=== PATIENT | female | born 1945 | race Hispanic/Latino ===

== ENCOUNTER 2018-06-09 07:03 | Day surgery (SDC) | payer MEDICARE ==
[~2018-06-09 07:03] MED LIST: ANCEF/STERILE WATER 2 GM/20 ML IV NR
[2018-06-09] MEDS ORDERED: NACL 0.9% 1000 ML 1,000 ML ONE (07:39)
--- NOTE | 2018-06-09 08:30 | Anesthesia Day of Surgery ---
Anesthesia Day of Surgery - Day of Surgery Patient Examined: Yes Patient H&P Reviewed: Yes Patient is NPO: Yes
--- NOTE | 2018-06-09 08:31 | Anesthesia Consultation ---
Anesthesia Consult and Med Hx Date of service: 06/09/18 - Airway Anesthetic Teeth Evaluation: Poor ROM Head & Neck: Adequate Mental/Hyoid Distance: Adequate Mallampati Class: Class I Intubation Access Assessment: Good - Pulmonary Exam CTA: Yes - Cardiac Exam Cardiac Exam: RRR - Pre-Operative Health Status ASA Pre-Surgery Classification: ASA3 Proposed Anesthetic Plan: General (GA with LMA ok, denies HTN, Denies DM, Age > 70 ASA 3) - Pulmonary Hx Smoking: No Hx Sleep Apnea: No (MONALISA PRE SCREEN LOW RISK.) - Cardiovascular System Hx Hypertension: No - Hematic Hx Anemia: Yes (NOT RECENT) - Other Systems Hx Cancer: No
[2018-06-09] MEDS ORDERED: XYLOCAINE MPF 2% ONE (09:16)
[2018-06-09] MEDS ORDERED: SUBLIMAZE ONE (09:16)
[2018-06-09] MEDS ORDERED: DIPRIVAN 10 MG/ML IV ONE (09:16)
[2018-06-09] MEDS ORDERED: WATER FOR IRRIG STERILE IR ONE ×2 (10:01→10:02)
[2018-06-09] MEDS ORDERED: ZOFRAN ONE (10:18)
[2018-06-09] MEDS ORDERED: TORADOL ONE (10:19)
--- NOTE | 2018-06-09 10:20 | Short Stay Summary ---
Short Stay Documentation Date of service: 06/09/18 - History H&P: obtained from office - Allergies and Medications Current Medications: Allergies sulfamethoxazole [From Bactrim] Allergy (Verified 06/03/18 14:06) Rash , SKIN BLISTERS trimethoprim [From Bactrim] Allergy (Verified 06/03/18 14:06) Rash Home Medications Medication Instructions Recorded Confirmed Last Taken Type No Known Home Medications [No 06/03/18 06/03/18 Unknown History Reported Home Medications] - Brief post op/procedure progress note Date of procedure: 06/09/18 Pre-op diagnosis: left ureteral stone Post-op diagnosis: other (left ureteral stricture) Procedure: cysto, rpg, left ureteroscopy, dilation,stent (external string) Anesthesia: GETA Surgeon: ARCHANA KATE Condition: stable - Hospital course Hospital course: marisabel clifton, post op info on chart - Disposition Condition at discharge: Stable Disposition: DC-01 TO HOME OR SELFCARE Short Stay Discharge Plan Follow up with: YOLANDA DENNY MD [Primary Care Provider] - 7 Days
[2018-06-09] MEDS ORDERED: SUBLIMAZE IV PRN (11:13)
--- NOTE | 2018-06-09 11:17 | Fluoroscopy Report ---
FLUOROSCOPY RETROGRADE UROGRAPHY: HISTORY: Left ureteral stone, left ureteral stricture. FINDINGS: Fluoroscopy was provided by radiology during retrograde urography by the urologist. 10 fluoroscopic images were captured. There is adequate filling of the ureters and intrarenal collecting systems with no filling defects or anatomic abnormalities identified. Subsequent images demonstrate balloon dilatation of the distal left ureter and placement of a left ureteral stent. Please correlate with the procedural report if needed. IMPRESSION: Left ureteral stent placement.
--- NOTE | 2018-06-09 12:09 | Post Anesthesia Evaluation ---
- Post Anesthesia Evaluation Patient Participated: Yes Airway Patent: Yes Stable Respiratory Function: Yes Nausea/Vomiting: No Temp > 96.8F: Yes Pain Manageable: Yes Adequeate Hydration: Yes Anesthesia Complications: No Block Receding Appropriately: Not Applicable
[2018-06-09 12:24] VITALS: BP 156/75
--- NOTE | 2018-06-09 12:34 | Operative Report ---
PREOPERATIVE DIAGNOSIS: Left ureteral stone. POSTOPERATIVE DIAGNOSES: Passed stone, left ureteral stricture. PROCEDURE: Cystoscopy, bilateral retrograde pyelograms, left ureteroscopy, dilatation of left ureter, double-J stent (6-Panamanian x 24 cm with an external string). SURGEON: Carlton Baldwin MD ANESTHESIA: General. ESTIMATED BLOOD LOSS: Minimal. FLUIDS: Crystalloid. COMPLICATIONS: No complications. INDICATIONS: This patient is a 72-year-old female seen in the office for left flank pain. CT of abdomen and pelvis revealed a thickened bladder wall, history of UTIs and stones in the past. She had an open procedure, Pfannenstiel types, suggesting an open ureterolithotomy. DESCRIPTION OF PROCEDURE: The patient was taken to the operative suite and placed in the supine position. After adequate general anesthesia, she was placed in a dorsal lithotomy position, and prepped and draped in a sterile fashion. Pancystourethroscopy was performed with a 22-Panamanian Storz cystoscope. No bladder pathology. No tumors or stones were noted. Bilateral retrograde pyelograms were obtained with an 8 Panamanian Idalia catheter and 8 mL of contrast. No filling defects or obstruction on the right, some narrowing of the mid ureter on the left side. Based on these findings, two 0.035 Glidewires were placed. Rigid ureteroscopy up to the renal pelvis. In the mid ureter for several centimeters, 3-4 cm, it was the stenosis which could be dilated with the scope. No stone could be appreciated, suggesting she may have passed the stone. Scope was removed. A 6-Panamanian x 24 cm double-J stent with an external string was left indwelling. She was extubated and taken to recovery room. She will go home on Cipro, Ultram, and [employer]. JOB# [id number] [facility]
== END 2018-06-09 12:30 | disposition home or self-care (01) ==
LOC: OR 07:03
PROVIDERS: ATTEND Urology
DX: N13.5 Crossing vessel and stricture of ureter without hydronephrosis (principal); D64.9 Anemia, unspecified; E78.00 Pure hypercholesterolemia, unspecified; Z79.899 Other long term (current) drug therapy; Z88.1 Allergy status to other antibiotic agents; Z88.2 Allergy status to sulfonamides; Z98.890 Other specified postprocedural states
CPT/HCPCS: 52332; 52344; 74420; A4217; C1758; C1769; C2617; J1885; J2405; J2704; J3010; J7030; Q9967